=== PATIENT | male | born 1970 | race Two or more races ===

== ENCOUNTER 2016-12-27 12:58 | Emergency (ER) | payer OTHER ==
[2016-12-27 13:11] VITALS: BP 118/71; PULSE 75; TEMP 97.7; BMI 30.1
--- NOTE | 2016-12-27 15:19 | PDOC ---
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 Occurred: reports: last week Severity: reports: mild Pain Location: reports: upper extremity (left hand) Method of Injury: Yes: direct blow Past History - Past Medical History Allergies/Adverse Reactions: Allergies Allergy/AdvReac Type Severity Reaction Status Date / Time No Known Allergies Allergy Verified 12/27/16 13:08 Home Medications: Ambulatory Orders NK [No Known Home Medication] 12/27/16 - Psycho/Social/Smoking Cessation Hx Anxiety: No Suicidal Ideation: No Smoking History: Never smoked Have you smoked in the past 12 months: No Information on smoking cessation initiated: No Hx Alcohol Use: No Drug/Substance Use Hx: No Substance Use Type: None Review of Systems - Review of Systems Constitutional: No: Chills, Fever Respiratory: No: Cough Integumentary: Yes: Other ( healing painful wound) *Physical Exam - Vital Signs Last Vital Signs Temp Pulse Resp BP Pulse Ox 97.7 F 75 18 118/71 100 12/27/16 13:08 12/27/16 13:08 12/27/16 13:08 12/27/16 13:08 12/27/16 13:08 - Physical Exam General Appearance: Yes: Appropriately Dressed, Apparent Distress Respiratory/Chest: positive: Lungs Clear Extremity: positive: Other (1 cm single healing wound to ST overmid 3rd MC right hand, volar surface; FROM to area, no redness; no palp mass; no cellulitis ) ED Treatment Course - RADIOLOGY Radiology Studies Ordered: Category Date Time Status HAND- RIGHT [RAD] Stat Radiology 12/27/16 14:47 Taken Medical Decision Making - Medical Decision Making 12/27/16 16:14 xray= no FB noted;called Dr Black's office; Leonora will make an appointment with Dr Black for tomorrow; pt will keep appointmet *DC/Admit/Observation/Transfer Diagnosis at time of Disposition: Injury of right hand Qualifiers: Encounter type: initial encounter Qualified Code(s): S69.91XA - Unspecified injury of right wrist, hand and finger(s), initial encounter - Discharge Dispostion Disposition: HOME Condition at time of disposition: Stable Admit: No - Referrals Referrals: Ketan Patel [Primary Care Provider] - Phill Black MD [Staff Physician] - - Patient Instructions Additional Instructions: please call and speak to Leonora at dr black's office; see MD tomorrow - Post Discharge Activity
== END 2016-12-27 16:18 | disposition home or self-care (01) ==
LOC: JERFT 12:58
DX: S69.91XA Unspecified injury of right wrist, hand and finger(s), initial encounter (principal); Y99.0 Civilian activity done for income or pay; W22.8XXA Striking against or struck by other objects, initial encounter; Y93.89 Activity, other specified; Y92.9 Unspecified place or not applicable
CPT/HCPCS: 73130-TC-RT; 99281-25

== ENCOUNTER 2018-04-08 20:04 | Emergency (ER) | payer OTHER ==
[2018-04-08 20:14] VITALS: BP 127/77; PULSE 67; TEMP 98; BMI 27.4
--- NOTE | 2018-04-08 20:16 | PDOC ---
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 pain worse with cough and movement. denies testicular pain PE: patient alert ox3 right ellen soft. no palpable mass A: inguinal hernia P: patient to the ER for further management of care. Discharge Disposition - Diagnosis Inguinal hernia Qualifiers: Obstruction and gangrene presence: without obstruction or gangrene Laterality: unilateral Recurrence: non-recurrent Qualified Code(s): K40.90 - Unilateral inguinal hernia, without obstruction or gangrene, not specified as recurrent - Referrals - Patient Instructions - Post Discharge Activity
--- NOTE | 2018-04-08 21:11 | PDOC ---
History of Present Illness - General Chief Complaint: Pain Stated Complaint: LOWER ABD PAIN Time Seen by Provider: 04/08/18 20:11 History Source: Patient Exam Limitations: No Limitations - History of Present Illness Travel History: No Initial Comments: 04/08/18 22:15 Best Contact:[phone] PCP:Dr. 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 Patient states while lifting a heavy object off the fire truck, the equipment swung downward and towards the right causing an acute sharp 10/10 acute nonradiating pain without n/v/d, abd pain, urinary symptoms, flank pain. Pain is alleviated at rest and exacerbated on cough and while sneezing. Past History - Past Medical History Allergies/Adverse Reactions: Allergies Allergy/AdvReac Type Severity Reaction Status Date / Time No Known Allergies Allergy Verified 04/08/18 20:14 Home Medications: Ambulatory Orders NK [No Known Home Medication] 12/27/16 COPD: No - Suicide/Smoking/Psychosocial Hx Smoking History: Never smoked Have you smoked in the past 12 months: No Hx Alcohol Use: No Drug/Substance Use Hx: No Substance Use Type: None Review of Systems - Review of Systems Able to Perform ROS?: Yes Comments:: 04/08/18 22:48 CONSTITUTIONAL: Absent: fever, chills, diaphoresis, generalized weakness, malaise, loss of appetite HEENT: Absent: rhinorrhea, nasal congestion, throat pain, throat swelling, difficulty swallowing, mouth swelling, ear pain, eye pain, visual Changes CARDIOVASCULAR: Absent: chest pain, loss of consciousness, palpitations, irregular heart rate, peripheral edema RESPIRATORY: Absent: cough, shortness of breath, dyspnea with exertion, orthopnea, wheezing, stridor, hemoptysis GASTROINTESTINAL: Absent: abdominal pain, abdominal distension, nausea, vomiting, diarrhea, constipation, melena, hematochezia GENITOURINARY: +Right groin pain Absent: dysuria, frequency, urgency, hesitancy, hematuria, flank pain, genital pain MUSCULOSKELETAL: Absent: myalgia, arthralgia, joint swelling SKIN: Absent: rash, itching, pallor HEMATOLOGIC/IMMUNOLOGIC: Absent: easy bleeding, easy bruising, lymphadenopathy, frequent infections ENDOCRINE: Absent: unexplained weight gain, unexplained weight loss, heat intolerance, cold intolerance NEUROLOGIC: Absent: headache, focal weakness or paresthesias, dizziness, unsteady gait, seizure, mental status changes, bladder or bowel incontinence PSYCHIATRIC: Absent: anxiety, depression, suicidal or homicidal ideation, hallucinations. Is the patient limited Hungarian proficient: No *Physical Exam - Vital Signs Last Vital Signs Temp Pulse Resp BP Pulse Ox 98 F 67 18 127/77 99 04/08/18 20:10 04/08/18 20:10 04/08/18 20:10 04/08/18 20:10 04/08/18 20:10 - Physical Exam Comments: 04/08/18 22:48 GENERAL: Well developed, well nourished. Awake and alert. No acute distress. HEENT: Normocephalic, atraumatic. PERRLA, EOMI. No conjunctival pallor. Sclera are non- icteric. Moist mucous membranes. Oropharynx is clear. NECK: Supple. Full ROM. No JVD. Carotid pulses 2+ and symmetric, without bruits. No thyromegaly. No lymphadenopathy. CARDIOVASCULAR: Regular rate and rhythm. No murmurs, rubs, or gallops. Distal pulses are 2+ and symmetric. PULMONARY: No evidence of respiratory distress. Lungs clear to auscultation bilaterally. No wheezing, rales or rhonchi. ABDOMINAL: +right groin on pain. neg testicular pain on palp Soft. Non-tender. Non-distended. No rebound or guarding. No organomegaly. Normoactive bowel sounds. MUSCULOSKELETAL Normal range of motion at all joints. No bony deformities or tenderness. No CVA tenderness. EXTREMITIES: No cyanosis. No clubbing. No edema. No calf tenderness. SKIN: Warm and dry. Normal capillary refill. No rashes. No jaundice. NEUROLOGICAL: Alert, awake, appropriate. Cranial nerves 2-12 intact. No deficits to light touch and temperature in face, upper extremities and lower extremities. No motor deficits in the in face, upper extremities and lower extremities. Normoreflexic in the upper and lower extremities. Normal speech. Toes are down- going bilaterally. Gait is normal without ataxia. PSYCHIATRIC: Cooperative. Good eye contact. Appropriate mood and affect. ED Treatment Course - LABORATORY CBC & Chemistry Diagram: 04/08/18 21:40 04/08/18 21:40 *DC/Admit/Observation/Transfer Diagnosis at time of Disposition: Sprain of groin Qualifiers: Encounter type: initial encounter Qualified Code(s): S33.8XXA - Sprain of other parts of lumbar spine and pelvis, initial encounter Inguinal hernia Qualifiers: Obstruction and gangrene presence: without obstruction or gangrene Laterality: unilateral Recurrence: non-recurrent Qualified Code(s): K40.90 - Unilateral inguinal hernia, without obstruction or gangrene, not specified as recurrent - Discharge Dispostion Disposition: HOME Condition at time of disposition: Stable Decision to Admit order: No - Referrals Referrals: Ketan Patel [Primary Care Provider] - Jose Francisco Douglas MD [Staff Physician] - Efrain Santacruz MD [Staff Physician] - - Patient Instructions Printed Discharge Instructions: DI for Groin Hernia, DI for Groin Strain Additional Instructions: The CAT scan of your abdomen and pelvis with oral and intravenous contrast shows there is small fat containing left inguinal hernia otherwise your exam was benign. You've been experiencing right sided groin pain but adamantly denied testicular discomfort. It is important that you follow-up with your PMD along with the physicians listed on your discharge. Tylenol alternating with Motrin every 6 hours as needed for pain. Return back to the ER for severe/persistent or worsening symptoms. - Post Discharge Activity Forms/Work/School Notes: Back to Work
[2018-04-08 21:54] LABS: BASO % 0.6 % (0-2.0); EOS % 5.8 % (0-4.5); HEMATOCRIT 45.9 % (35.4-49); HEMOGLOBIN 16.3 GM/dL (11.7-16.9); LYMPH % 27.7 % (8-40); MCH 31.8 pg (25.7-33.7); MCHC 35.4 g/dl (32.0-35.9); MEAN CELL VOLUME 89.7 fl (80-96); MEAN PLT VOLUME 9.1 fl (7.5-11.1); MONO % 5.9 % (3.8-10.2); PLATELET COUNT 259 K/MM3 (134-434); RBC 5.12 M/mm3 (4.00-5.60); RDW 12.8 % (11.9-15.9); WHITE BLOOD COUNT 9.5 K/mm3 (4.0-10.0)
[2018-04-08 22:36] LABS: ALBUMIN 4.3 g/dl (3.4-5.0); ALK PHOS 76 U/L (45-117); ANION GAP 7 MMOL/L (8-16); BILIRUBIN,TOTAL 0.8 mg/dL (0.2-1); BLOOD UREA NITROGEN 23 mg/dL (7-18); CALCIUM 9.4 mg/dL (8.5-10.1); CHLORIDE 102 mmol/L (98-107); CO2 30 mmol/L (21-32); CREATININE 1.3 mg/dL (0.55-1.3); GLUCOSE,RANDOM 104 mg/dL (74-106); POTASSIUM 5.1 mmol/L (3.5-5.1); SGOT/AST 32 U/L (15-37); SGPT/ALT 50 U/L (13-61); SODIUM 139 mmol/L (136-145); TOT PROT 7.5 g/dl (6.4-8.2)
[2018-04-09] MEDS ORDERED: KETOROLAC TROMETHAMINE 30 MG/1 ML VIAL IVPUSH ONE (00:24)
[2018-04-09] MEDS ORDERED: SODIUM CHLORIDE 1,000 ML IV STA (00:44)
[2018-04-09] MEDS ORDERED: KETOROLAC TROMETHAMINE 30 MG/1 ML VIAL ONE (00:53)
== END 2018-04-09 02:05 | disposition home or self-care (01) ==
LOC: JER 20:04
PROC: 3E0337Z Introduction of Electrolytic and Water Balance Substance into Peripheral Vein, Percutaneous Approach (ICD-10-PCS; principal; 2018-04-08)
PROC: 3E0333Z Introduction of Anti-inflammatory into Peripheral Vein, Percutaneous Approach (ICD-10-PCS; 2018-04-08)
DX: S39.011A Strain of muscle, fascia and tendon of abdomen, initial encounter (principal); K40.90 Unilateral inguinal hernia, without obstruction or gangrene, not specified as recurrent; X50.0XXA Overexertion from strenuous movement or load, initial encounter; Y93.89 Activity, other specified; Y92.89 Other specified places as the place of occurrence of the external cause; Y99.0 Civilian activity done for income or pay
CPT/HCPCS: 36415; 74177-TC; 80053; 85025; 99283-25; J7030; Q9967

== ENCOUNTER 2024-10-15 08:12 | Emergency (ER) | payer OTHER ==
[2024-10-15] MEDS ORDERED: NAPROXEN 500 MG TABLET ONE (08:45)
[2024-10-15] MEDS: NAPROXEN 500 MG TABLET PO ONE (08:46)
[2024-10-15 09:03] VITALS: BP 120/78; PULSE 74; RESP 18; TEMP 97.6; BMI 27.4
== END 2024-10-15 09:29 | disposition home or self-care (01) ==
LOC: JER 08:12
DX: S46.912A Strain of unspecified muscle, fascia and tendon at shoulder and upper arm level, left arm, initial encounter (principal); X50.1XXA Overexertion from prolonged static or awkward postures, initial encounter; Y99.0 Civilian activity done for income or pay
CPT/HCPCS: 73070-TC-LT-FY; 99283-25